=== PATIENT | female | born 1990 | race Caucasian/White ===

== ENCOUNTER 2018-05-15 15:53 | Outpatient (REF) | payer OTHER, SELFPAY | END 2018-05-15 16:13 | LOC: NCHCN 15:53 | PROVIDERS: PCP Family Medicine; Visit Provider Registered Nurse | DX: R82.90 Unspecified abnormal findings in urine (principal) | CPT/HCPCS: 87077; 87086; 87186 ==

== ENCOUNTER 2018-05-18 15:54 | Outpatient (REF) | payer OTHER, SELFPAY ==
[2018-05-18 21:03] LABS: Bilirubin Negative (Negative); Blood Negative (Negative); Clarity Sl Cloudy; Glucose Negative (Negative); Ketones Negative (Negative); Leukocyte Esterase Trace (Negative); Nitrite Negative (Negative); Specific Gravity 1.015 (1.005-1.025); Urobilinogen 0.2 EU/dL (Up TO 0.2)
[2018-05-18 21:23] LABS: Bacteria Few HPF (Negative); C & S Indicated? No/Sq. Contamination; Casts Negative LPF (Negative); Crystals Negative HPF (Negative); Epithelial Cells Many HPF (Negative); Mucus Negative (Negative); WBC 20-50 HPF (0-5)
== END 2018-05-18 16:14 ==
LOC: NCHCN 15:54
PROVIDERS: PCP Family Medicine; Visit Provider Registered Nurse
DX: R35.0 Frequency of micturition (principal); R82.90 Unspecified abnormal findings in urine
CPT/HCPCS: 81003; 81015

== ENCOUNTER 2019-10-02 17:30 | Outpatient (REF) | payer OTHER, SELFPAY ==
--- NOTE | 2019-10-02 16:45 | PAPFT_PTH ---
PATIENT: Pooja Paulino LOC: [facility] U#:[id number] AGE/SX: 29/F ROOM: RE10/02/[address]: Tawanna Carrillo : 1990 BED: DIS: 10/02/2019 SPEC #: [id number] RECD: 10/03/19 12:59 STATUS: JONO REQ #: [id number] CELE: 10/02/19 16:[address]: Tawanna Carrillo DEPT: [facility] Cytology RECD BY: Natalie Garcia ENTERED: 10/03/19 12:59 SP TYPE: PAPFT OTHR DR: Kenneth Ohara Tissues: 1 - CX/ENDOCX FOR PAP SMEARS Procedures: PAP THIN PREP/[facility] Screening HPV DNA PROBE Comments: [id number]
== END 2019-10-02 17:50 ==
LOC: NCHCN 17:30
PROVIDERS: PCP Family Medicine; Visit Provider Family Medicine
DX: Z12.4 Encounter for screening for malignant neoplasm of cervix (principal)
CPT/HCPCS: 88142; 87624

== ENCOUNTER 2020-07-22 12:01 | Outpatient (REF) | payer OTHER, SELFPAY ==
[2020-07-26 14:14] LABS: SARS-CoV-2 RNA Undetected (Undetected); SARS-CoV-2 Specimen Source Nasal
== END 2020-07-22 12:21 ==
LOC: NCHCN 12:01
PROVIDERS: PCP Family Medicine; Visit Provider Family Medicine
DX: J06.9 Acute upper respiratory infection, unspecified (principal)
CPT/HCPCS: U0003

== ENCOUNTER 2020-08-06 13:37 | Outpatient (REF) | payer OTHER, SELFPAY ==
[2020-08-08 16:41] LABS: COVID-19 RT-PCR Result NEGATIVE (Negative)
== END 2020-08-06 13:57 ==
LOC: NCHCN 13:37
PROVIDERS: PCP Family Medicine; Visit Provider Family Medicine
DX: J06.9 Acute upper respiratory infection, unspecified (principal)
CPT/HCPCS: U0003

== ENCOUNTER 2024-07-05 12:02 | Outpatient (REF) | payer OTHER, SELFPAY ==
--- NOTE | 2024-07-05 10:45 | PAPFT_PTH ---
PATIENT: Pooja Paulino LOC: [facility]#:[id number] AGE/SX: 33/F ROOM: RE07/05/[address]: ALESSIO: 1990 BED: DIS: 07/05/2024 SPEC #: [id number] RECD: 07/05/24 15:41 STATUS: JONO CASILLAS #: [id number] CELE: 07/05/24 10:[address]: Maria Guadalupe Ashton DEPT: [facility] Cytology RECD BY: Natalie Garcia ENTERED: 07/05/24 15:42 SP TYPE: PAPFT OTHR DR: Kenneth Ohara Tissues: 1 - CX/ENDOCX FOR PAP SMEARS Procedures: PAP THIN PREP/[facility] Screening Comments: [id number]
== END 2024-07-05 12:03 | disposition home or self-care (01) ==
LOC: NCHCN 12:02
PROVIDERS: PCP Family Medicine; Visit Provider Family Medicine
DX: Z12.4 Encounter for screening for malignant neoplasm of cervix (principal)
CPT/HCPCS: 88142

== ENCOUNTER 2025-05-13 15:22 | Outpatient (REF) | payer OTHER, SELFPAY ==
[2025-05-13 14:43] LABS: HCT 40.7 % (36.0-46.0); HGB 14.2 g/dL (11.2-15.7); MCH 31.0 pg (27.0-33.0); MCHC 34.9 % (32.0-36.0); MCV 89 fL (80-95); MPV 9.5 fL (8.0-11.0); Platelet Count 400 10^3/uL (130-400); RBC 4.58 10^6/uL (3.93-5.22); RDW 11.5 % (11.7-14.6); RDW-SD 37.1 fL; WBC 5.55 10^3/uL (4.4-10.8)
[2025-05-13 15:22] LABS: ALT 31 U/L (14-59); AST 20 U/L (15-37); Albumin 4.0 g/dL (3.4-5.0); Alkaline Phosphatase 58 U/L (46-116); Anion Gap 8.8 mmol/L (3-11); BUN 17 mg/dL (7-18); Bilirubin, Total 0.8 mg/dL (0.2-1.0); CO2 26.2 mmol/L (21.0-32.0); Calcium 9.3 mg/dL (8.5-10.1); Chloride 104 mmol/L (98-107); Estimated GFR 115.59 (mL/min/1.73m2); Glucose 79 mg/dL (74-106); HCG Quant, Pregnancy 5 mIU/mL (1-3); Potassium 4.6 mmol/L (3.5-5.1); Sodium 139 mmol/L (136-145); TSH 1.28 uIU/mL (0.36-3.74); Total Protein 7.4 g/dL (6.4-8.2)
== END 2025-05-13 15:23 | disposition home or self-care (01) ==
LOC: NCHCN 15:22
PROVIDERS: PCP Family Medicine; Visit Provider Nurse Practitioner Family
DX: N93.9 Abnormal uterine and vaginal bleeding, unspecified (principal)
CPT/HCPCS: 80053; 85027; 84443; 84702

== ENCOUNTER 2025-08-12 15:14 | Outpatient (REF) | payer OTHER, SELFPAY ==
[2025-08-12 14:42] LABS: HCT 39.3 % (36.0-46.0); HGB 13.3 g/dL (11.2-15.7); MCH 30.4 pg (27.0-33.0); MCHC 33.8 % (32.0-36.0); MCV 90 fL (80-95); MPV 9.4 fL (8.0-11.0); Platelet Count 452 10^3/uL (130-400); RBC 4.38 10^6/uL (3.93-5.22); RDW 11.5 % (11.7-14.6); RDW-SD 37.7 fL; WBC 7.52 10^3/uL (4.4-10.8)
[2025-08-12 15:17] LABS: HCG Quant, Pregnancy 1236 mIU/mL (1.5-4.2)
== END 2025-08-12 15:15 | disposition home or self-care (01) ==
LOC: NCHCN 15:14
PROVIDERS: PCP Family Medicine; Visit Provider Nurse Practitioner Family
DX: N93.9 Abnormal uterine and vaginal bleeding, unspecified (principal)
CPT/HCPCS: 85027; 84702